=== PATIENT | female | born 1955 ===

== ENCOUNTER 2017-01-01 18:27 | Emergency (ER) | payer OTHER ==
[2017-01-01 19:20] VITALS: BP 143/75; PULSE 98; RESP 20; TEMP 98.1; O2SAT 99
[2017-01-01] MEDS ORDERED: Sodium Chloride 0.9% 1,000 ML IV ONE (20:21)
--- NOTE | 2017-01-01 20:45 | ED PDOC ---
HPI:Nausea, Vomiting, Diarrhea Time Seen by Provider: 01/01/17 19:35 Chief Complaint (Nursing): GI Problem History Per: Patient History/Exam Limitations: no limitations Onset/Duration Of Symptoms: Gradual Current Symptoms Are (Timing): Still Present Severity: Moderate Quality Of Discomfort: Dull Associated Symptoms: Nausea, Vomiting, Diarrhea, Urinary Symptoms. denies: Fever, Chills Exacerbating Factors: None Alleviating Factors: None Last Bowel Movement: Today Additional History Per: Patient Additional Complaint(s): patient has had n/v/d since 8 am. Patient has suprapubic pain, painful urination and b/l flank pain. no trauma no travel or sick contacts Past Medical History Reviewed: Historical Data, Nursing Documentation, Vital Signs Vital Signs: Last Vital Signs Temp 98.1 F 01/01/17 19:15 Pulse 98 H 01/01/17 19:15 Resp 20 01/01/17 19:15 BP 143/75 01/01/17 19:15 Pulse Ox 99 01/01/17 19:15 - Medical History PMH: No Chronic Diseases, HTN - Family History Family History: States: Unknown Family Hx - Living Arrangements Living Arrangements: With Family - Social History Current smoker - smoking cessation education provided: No - Home Medications Home Medications: Ambulatory Orders Medication Instructions Recorded traMADol [Ultram] 50 mg PO Q6 PRN #16 tab 11/03/16 Atropine/Diphenoxylate [Lonox 1 tab PO BID PRN #20 tab 01/01/17 0.025 MG-2.5 MG] Ondansetron [Zofran Odt] 4 mg PO TID PRN #14 odt 01/01/17 - Allergies Allergies/Adverse Reactions: Allergies Allergy/AdvReac Type Severity Reaction Status Date / Time No Known Allergies Allergy Verified 11/28/14 12:33 Review of Systems ROS Statement: Except As Marked, All Systems Reviewed And Found Negative Constitutional: Negative for: Fever, Chills Cardiovascular: Negative for: Chest Pain, Palpitations Respiratory: Negative for: Cough, Shortness of Breath Gastrointestinal: Positive for: Nausea, Vomiting, Abdominal Pain, Diarrhea Genitourinary Female: Positive for: Dysuria. Negative for: Frequency, Incontinence, Hematuria Neurological: Negative for: Weakness, Numbness Physical Exam - Reviewed Nursing Documentation Reviewed: Yes Vital Signs Reviewed: Yes - Physical Exam Appears: Positive for: No Acute Distress, Uncomfortable Head Exam: Positive for: ATRAUMATIC, NORMAL INSPECTION, NORMOCEPHALIC Eye Exam: Positive for: Normal appearance, EOMI, PERRL. Negative for: Periorbital swelling, Periorbital tenderness Neck: Positive for: Normal, Painless ROM, Supple. Negative for: Decreased ROM, Limited ROM, Trachea Midline Cardiovascular/Chest: Positive for: Regular Rate, Rhythm. Negative for: Chest Non Tender, Edema, Gallop, Murmur, Bradycardia, Tachycardia Respiratory: Positive for: Normal Breath Sounds. Negative for: Decreased Breath Sounds, Accessory Muscle Use, Crackles, Rales, Rhonchi, Stridor, Wheezing Pulses-Radial (L): 2+ Pulses-Radial (R): 2+ Gastrointestinal/Abdominal: Positive for: Normal Exam, Bowel Sounds, Soft. Negative for: Tenderness Back: Positive for: Normal Inspection. Negative for: L CVA Tenderness, R CVA Tenderness Extremity: Positive for: Normal ROM. Negative for: Tenderness, Pedal Edema Neurologic/Psych: Positive for: Alert, software database architect II-XII, Oriented. Negative for: Motor/Sensory Deficits - Laboratory Results Result Diagrams: 01/01/17 20:47 01/01/17 20:47 - ECG ECG: Positive for: Interpreted By Me ECG Rhythm: Positive for: Normal QRS, Normal ST Segment, Sinus Rhythm. Negative for: ST/T Changes Interpretation Of Abn EKG: rate of 91, no evidence of ischemia O2 Sat by Pulse Oximetry: 99 Pulse Ox Interpretation: Normal - Progress ED Course And Treament: can tolerate po. ct scan with possible ileus. sx all due to gastroenteritis no signs of infection. advise close f/u with pmd. lomotil and zofran. norco for pain. pt agree's with plan. Re-evaluation Time: 22:59 Condition: Improved Disposition - Clinical Impression Clinical Impression: Gastroenteritis - Patient ED Disposition Is Patient to be Admitted: No Counseled Patient/Family Regarding: Studies Performed, Diagnosis, Need For Followup, Rx Given - Disposition Referrals: [facility] [Outside] Disposition: Routine/Home Disposition Time: 23:00 Condition: GOOD Prescriptions: Atropine/Diphenoxylate [Lonox 0.025 MG-2.5 MG] 1 tab PO BID PRN #20 tab PRN Reason: Diarrhea Ondansetron [Zofran Odt] 4 mg PO TID PRN #14 odt PRN Reason: Nausea/Vomiting Instructions: Gastroenteritis (ED) Print Language: ITALIAN
[2017-01-01 21:38] LABS: ALB/GLOB RATIO 1.4 (1.0-2.1); ALKALINE PHOSPHATASE 84 U/L (38-126); ALT/SGPT 36 U/L (9-52); AMYLASE 94 U/L (30-110); AST/SGOT 36 U/L (14-36); BILIRUBIN,TOTAL 0.5 mg/dl (0.2-1.3); BLOOD UREA NITROGEN 19 mg/dl (7-17); CALCIUM 9.8 mg/dL (8.4-10.2); CARBON DIOXIDE 23 mmol/L (22-30); CHLORIDE 101 mmol/L (98-107); GFR AFRICAN-AMERICAN > 60; GLUCOSE,RANDOM 105 mg/dL (65-105); LIPASE 48 U/L (23-300); POTASSIUM 4.1 MMOL/L (3.6-5.0); SODIUM 142 mmol/l (132-148); TOTAL PROTEIN 7.9 G/DL (6.3-8.2)
[2017-01-01 21:39] LABS: BASO % 0.3 % (0.0-2.0); HEMATOCRIT 47.4 % (34.0-47.0); LYMPH # 0.5 K/uL (1.0-4.3); LYMPH % 5.8 % (20.0-40.0); MEAN CELL VOLUME 90.8 fl (81.0-99.0); MEAN CORPUSCULAR HEMOGLOBIN 29.9 pg (27.0-31.0); MEAN CORPUSCULAR HGB CONC 32.9 g/dL (33.0-37.0); MEAN PLATELET VOLUME 9.4 fl (7.2-11.7); MONO # 0.8 K/uL (0.0-0.8); NEUT # 7.4 K/uL (1.8-7.0); NEUT % 84.9 % (50.0-75.0); PLATELET COUNT 211 K/uL (130-400); RED CELL DISTRIBUTION WIDTH 14.5 % (11.5-14.5); WHITE BLOOD COUNT 8.7 K/uL (4.8-10.8)
[2017-01-01 21:46] LABS: URINE BILIRUBIN NEGATIVE (NEGATIVE); URINE BLOOD NEGATIVE (NEGATIVE); URINE COLOR YELLOW (YELLOW); URINE GLUCOSE (UA) NEG (Normal); URINE KETONE 80 mg/dL (NEGATIVE); URINE LEUKOCYTE ESTERASE NEG Leu/uL (Negative); URINE PROTEIN 30 mg/dL (NEGATIVE); URINE UROBILINOGEN 0.2-1.0 mg/dL (0.2-1.0)
[2017-01-01 22:07] LABS: NEUTROPHIL 85 % (42-75); TOTAL CELLS COUNTED 100
[2017-01-01 22:08] LABS: LARGE PLATELETS PRESENT
--- NOTE | 2017-01-01 22:31 | CT ---
EXAM: CT Abdomen and Pelvis Without Intravenous Contrast CLINICAL HISTORY: 61 years old, female; Pain; Abdominal pain; Generalized; Additional info: Bl flank pain. Sent lona Pina. Doc. With request TECHNIQUE: Axial computed tomography images of the abdomen and pelvis without intravenous contrast. This CT exam was performed using one or more of the following dose reduction techniques: automated exposure control, adjustment of the mA and/or kV according to patient size, and/or use of iterative reconstruction technique. Coronal and sagittal reformatted images were created and reviewed. EXAM DATE/TIME: 01/01/2017 8:46 PM COMPARISON: CT - ABD PELVIS W/O PO OR IV CONT 11/03/2016 6:42:21 PM FINDINGS: Artifacts: Motion artifact degrades image quality. Lower thorax: Heart size is normal. Lung bases are clear. There is a small hiatal hernia ABDOMEN: Liver: unremarkable Gallbladder and bile ducts: Gallbladder is collapsed around calcified stones Common bile duct is prominent. Pancreas: Pancreas is mildly atrophic. Spleen: unremarkable Adrenals: There is diffuse thickening of the left adrenal. There is mild thickening of the right adrenal. Kidneys and ureters: Kidneys and ureters are unremarkable. There are no renal or ureteral stones. Stomach and bowel: Stomach is partially distended. Rotation is normal. Small bowel is mildly distended with fluid. There are scattered air-fluid levels in the left upper quadrant. Terminal ileum is mildly distended with fluid. Appendix is unremarkable. There are scattered air-fluid levels in the colon. Appendix: See above. PELVIS: Bladder: unremarkable Reproductive: Uterus is atrophic. Adnexa are unremarkable. ABDOMEN and PELVIS: Intraperitoneal space: There is no free air or free fluid. Bones/joints: There are degenerative changes in the bony structures. There is mild loss of height at T12. Soft tissues: unremarkable Vasculature: There are vascular calcifications. Lymph nodes: There is no pathologic adenopathy. IMPRESSION: No renal or ureteral stones or hydronephrosis; gallstones with mildly prominent common duct; fluid filled small and large bowel with scattered air-fluid levels more suggestive of ileus than obstruction Additional findings as described above.
--- NOTE | 2017-01-02 18:26 | CARD ---
APPROVED REPORT EKG Measurement Heart [id number] <Conclusion> Normal sinus rhythm Normal ECG
== END 2017-01-01 23:23 | disposition home or self-care (01) ==
LOC: H.ER 18:27
DX: K52.9 Noninfective gastroenteritis and colitis, unspecified (principal)

== ENCOUNTER 2017-04-04 20:41 | Inpatient (IN) | payer OTHER ==
[2017-04-04 20:46] VITALS: BMI 30.8
[2017-04-04 21:20] LABS: BASO # 0.1 K/uL (0.0-0.2); BASO % 0.6 % (0.0-2.0); EOS # 0.1 K/uL (0.0-0.7); EOS % 0.7 % (0.0-4.0); HEMOGLOBIN 13.9 g/dL (12.0-16.0); LYMPH # 3.1 K/uL (1.0-4.3); LYMPH % 28.1 % (20.0-40.0); MEAN CORPUSCULAR HEMOGLOBIN 29.8 pg (27.0-31.0); MEAN CORPUSCULAR HGB CONC 33.1 g/dL (33.0-37.0); MONO # 0.9 K/uL (0.0-0.8); MONO % 8.4 % (0.0-10.0); NEUT # 6.7 K/uL (1.8-7.0); NEUT % 62.2 % (50.0-75.0); RBC 4.67 Mil/uL (3.80-5.20); RED CELL DISTRIBUTION WIDTH 13.7 % (11.5-14.5); WHITE BLOOD COUNT 10.8 K/uL (4.8-10.8)
[2017-04-04 21:37] LABS: ALB/GLOB RATIO 1.5 (1.0-2.1); ALBUMIN 4.3 g/dL (3.5-5.0); ALT/SGPT 41 U/L (9-52); AST/SGOT 25 U/L (14-36); BLOOD UREA NITROGEN 12 mg/dl (7-17); CALCIUM 9.8 mg/dL (8.4-10.2); GFR AFRICAN-AMERICAN > 60; GFR NON-AFRICAN AMERICAN > 60; LIPASE 49 U/L (23-300)
--- NOTE | 2017-04-04 22:12 | ED PDOC ---
HPI: Abdomen Time Seen by Provider: 04/04/17 20:59 Chief Complaint (Nursing): Abdominal Pain Chief Complaint (Provider): Epigastric abdominal pain History Per: Patient History/Exam Limitations: no limitations Onset/Duration Of Symptoms: Days Outside of [place] travel?: No Current Symptoms Are (Timing): Still Present Additional Complaint(s): The patient is 61yo female, PMHx of HTN, presents to ED for evaluation of epigastric pain. Pt reports she has been experiencing epigastric abdominal pain and took Omperazole with no relief. She denies any fever, vomiting or diarrhea. At present offers no additional medical complaints. Past Medical History Reviewed: Historical Data, Nursing Documentation, Vital Signs Vital Signs: Last Vital Signs Temp 98.3 F 04/09/17 08:07 Pulse 60 04/09/17 08:36 Resp 20 04/09/17 08:07 BP 116/62 04/09/17 08:36 Pulse Ox 91 L 04/09/17 08:07 - Medical History PMH: Gall Bladder Disease, HTN - Family History Family History: States: Unknown Family Hx - Home Medications Home Medications: Ambulatory Orders Medication Instructions Recorded Losartan [Cozaar] 25 mg PO DAILY 04/05/17 Simvastatin [Zocor] 20 mg PO DAILY 04/05/17 Amoxicillin/Clavulanate [Augmentin 1 tab PO BID #1 tab 04/09/17 875 MG-125 MG] oxyCODONE/Acetaminophen [Percocet 1 tab PO Q4 PRN tab 04/09/17 5/325 mg Tab] - Allergies Allergies/Adverse Reactions: Allergies Allergy/AdvReac Type Severity Reaction Status Date / Time No Known Allergies Allergy Verified 04/04/17 20:46 Review of Systems ROS Statement: Except As Marked, All Systems Reviewed And Found Negative Constitutional: Negative for: Fever Gastrointestinal: Positive for: Abdominal Pain (epigastric pain). Negative for : Vomiting, Diarrhea Physical Exam - Reviewed Nursing Documentation Reviewed: Yes Vital Signs Reviewed: Yes - Physical Exam Appears: Positive for: Well, Non-toxic, No Acute Distress Head Exam: Positive for: ATRAUMATIC, NORMAL INSPECTION, NORMOCEPHALIC Skin: Positive for: Normal Color, Warm Eye Exam: Positive for: Normal appearance Neck: Positive for: Normal, Supple Cardiovascular/Chest: Positive for: Regular Rate, Rhythm Respiratory: Positive for: Normal Breath Sounds. Negative for: Respiratory Distress Gastrointestinal/Abdominal: Positive for: Soft, Tenderness (mild epigastric tenderness) Extremity: Positive for: Normal ROM Neurologic/Psych: Positive for: Alert, Oriented - Laboratory Results Result Diagrams: 04/09/17 06:50 04/09/17 06:50 - ECG O2 Sat by Pulse Oximetry: 100 (RA) Pulse Ox Interpretation: Normal Medical Decision Making Medical Decision Making: Time: 2103 Impression: Abdominal pain r/o cholecystitis Plan: -- US Gallbladder -- Pepcid 20 mg Reassess 2299 US FINDINGS The liver is normal in size (11.8 cm length) and texture. The gallbladder has a thickened wall (4 mm), with no stones nor sludge seen. No pericholecystic fluid is appreciated. The sonographic Eng's sign is reported to be (-). The CBD is dilated (8 mm diameter). No ductal stones are seen. The pancreas is not well visualized. The right kidney measures 10.1 cm in length, with no hydronephrosis appreciated. No ascites is seen. IMPRESSION: Acalculous cholecystitis may be present. Clinical correlation is needed. No gallstones are identified. The gallbladder wall is thickened (4 mm thickness) . The CBD is dilated (8 mm diameter). No ductal stones are seen. 230 page surgical garment inspector twice, no answer dr schulz aware of case, agree w plan dr echavarria admitted pt Scribe Attestation: Documented by Barbie Lowery acting as a scribe for Sampson Mullins MD. Provider Attestation: All medical record entries made by the Scribe were at my direction and personally dictated by me. I have reviewed the chart and agree that the record accurately reflects my personal performance of the history, physical exam, medical decision making, and the department course for this patient. I have also personally directed, reviewed, and agree with the discharge instructions and disposition. Disposition - Clinical Impression Clinical Impression: Abdominal pain, Acalculous cholecystitis - Patient ED Disposition Is Patient to be Admitted: Yes Discussed With : Edu Echavarria (Hospitalist warehouse person) Counseled Patient/Family Regarding: Studies Performed, Diagnosis, Need For Followup - Disposition Disposition Time: 23:03 Condition: STABLE - Pt Status Changed To: Hospital Disposition Of: Inpatient (MED/SURG) - Admit Certification Admit to Inpatient:: After my assessment, the patient will require hospitalization for at least two midnights. This is because of the severity of symptoms shown, intensity of services needed, and/or the medical risk in this patient being treated as an outpatient.
[2017-04-04] MEDS ORDERED: Iohexol 240 (50 ml) PO ONE (23:00)
[2017-04-04] MEDS ORDERED: Piperacillin/Tazobact 4.5 GM in Sodium Chloride 0.9% 100 ML IVPB STA (23:03)
--- NOTE | 2017-04-04 23:14 | CP.PCM.HP ---
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 She could not eat because of the nausea, vomits. No SOB, Chest Pain, Palpitations, diarrhea, dysuria nor fever. 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 absent: Chills, Fever, Lethargy - EENT Eyes: Requires Corrective Lenses. absent: Diplopia, Floaters, Photophobia, Sees Flashes Ears: absent: Decreased Hearing, Ear Discharge, Ear Pain, Tinnitus Nose/Mouth/Throat: absent: Epistaxis, Nasal Congestion, Nasal Discharge, Sinus Pain, Sinus Pressure - Cardiovascular Cardiovascular: absent: Chest Pain, Dyspnea, Edema - Respiratory Respiratory: Cough. absent: Dyspnea, Wheezing, Stridor - Gastrointestinal Gastrointestinal: Abdominal Pain, Nausea, Vomiting. absent: Coffee Ground Emesis, Constipation, Diarrhea - Genitourinary Genitourinary: absent: Dysuria, Flank Pain, Hematuria, Urinary Frequency - Musculoskeletal Musculoskeletal: Back Pain. absent: Arthralgias, Joint Swelling, Muscle Cramps , Muscle Weakness - Integumentary Integumentary: absent: Pruritus, Rash, Skin Ulcer, Sores, Striae, Swelling - Neurological Neurological: Headaches. absent: Confusion, Numbness, Focal Weakness, Weakness - Psychiatric Psychiatric: Depression. absent: Anxiety, Panic Attacks - Endocrine Endocrine: absent: Palpitations, Polydipsia, Polyphagia, Polyuria - Hematologic/Lymphatic Hematologic: absent: Easy Bleeding, Easy Bruising Past Patient History - Past Social History Smoking Status: Former Smoker Chewing Tobacco Use: No Cigar Use: No Alcohol: < 2 Drinks/Day Home Situation {Lives}: Alone - CARDIAC Hx Hypertension: Yes - PULMONARY Hx Respiratory Disorders: No - NEUROLOGICAL Hx Neurological Disorder: No - HEENT Hx HEENT Problems: No - RENAL Hx Chronic Kidney Disease: Yes Hx Kidney Stones: Yes - ENDOCRINE/METABOLIC Hx Endocrine Disorders: No - HEMATOLOGICAL/ONCOLOGICAL Hx Blood Disorders: No - INTEGUMENTARY Hx Dermatological Problems: No - MUSCULOSKELETAL/RHEUMATOLOGICAL Hx Musculoskeletal Disorders: Yes Other/Comment: Multilevel degenerative spondylosis of thoracic and lumbar spine - GASTROINTESTINAL Hx Gall Bladder Disease: Yes Other/Comment: Cholelithiasis - GENITOURINARY/GYNECOLOGICAL Hx Genitourinary Disorders: No - PSYCHIATRIC Hx Depression: Yes Hx Substance Use: No - SURGICAL HISTORY Other/Comment: cyst removal / Cystoscopy - ANESTHESIA Hx Anesthesia: Yes Hx Anesthesia Reactions: No Meds Allergies/Adverse Reactions: Allergies Allergy/AdvReac Type Severity Reaction Status Date / Time No Known Allergies Allergy Verified 04/04/17 20:46 Physical Exam - Constitutional Appears: No Acute Distress - Head Exam Head Exam: ATRAUMATIC, NORMAL INSPECTION, NORMOCEPHALIC - Eye Exam Eye Exam: EOMI, Normal appearance Pupil Exam: NORMAL ACCOMODATION, PERRL - ENT Exam ENT Exam: Mucous Membranes Moist, Normal Exam, Normal External Ear Exam, Normal Oropharynx - Neck Exam Neck exam: Positive for: Full Rom, Normal Inspection. Negative for: Lymphadenopathy, Tenderness - Respiratory Exam Respiratory Exam: Clear to Auscultation Bilateral. absent: Rales, Rhonchi, Wheezes - Cardiovascular Exam Cardiovascular Exam: REGULAR RHYTHM, RRR, +S1, +S2. absent: Gallop, JVD - GI/Abdominal Exam Additional comments: Full, Soft, Decreased bowel sounds, gloria at the Epigastrium and RUQ. no guarding with +ve mild rebound tenderness - Rectal Exam Rectal Exam: Deferred - Extremities Exam Extremities exam: Positive for: full ROM, normal inspection. Negative for: calf tenderness, joint swelling, pedal edema - Back Exam Back exam: NORMAL INSPECTION. absent: CVA tenderness (L), CVA tenderness (R) - Neurological Exam Neurological exam: Alert, CN II-XII Intact, Oriented x3, Reflexes Normal - Psychiatric Exam Psychiatric exam: Normal Affect, Normal Mood - Skin Skin Exam: Dry, Intact, Normal Color, Warm Results - Vital Signs Recent Vital Signs: Last Vital Signs Temp 98.2 F 04/04/17 20:46 Pulse 66 04/04/17 20:46 Resp 16 04/04/17 20:46 BP 144/85 04/04/17 20:46 Pulse Ox 100 04/04/17 22:15 - Labs Result Diagrams: 04/04/17 21:12 04/04/17 21:12 Labs: Laboratory Results - last 24 hr 04/04/17 04/04/17 21:12 21:12 WBC 10.8 RBC 4.67 Hgb 13.9 Hct 42.1 MCV 90.0 MCH 29.8 MCHC 33.1 RDW 13.7 Plt Count 205 MPV 9.0 Neut % (Auto) 62.2 Lymph % (Auto) 28.1 [place] % (Auto) 8.4 Eos % (Auto) 0.7 Baso % (Auto) 0.6 Neut # 6.7 Lymph # 3.1 [place] # 0.9 H Eos # 0.1 Baso # 0.1 Sodium 140 Potassium 3.8 Chloride 104 Carbon Dioxide 27 Anion Gap 14 BUN 12 Creatinine 0.7 Est GFR ( Amer) > 60 Est GFR (Non-Af Amer) > 60 Random Glucose 101 Calcium 9.8 Total Bilirubin 0.6 AST 25 ALT 41 Alkaline Phosphatase 71 Total Protein 7.1 Albumin 4.3 Globulin 2.8 Albumin/Globulin Ratio 1.5 Lipase 49 - Imaging and Cardiology US - abdomen Status: Report reviewed by me Additional comment: FINDINGS: The liver is normal in size (11.8 cm length) and texture. The gallbladder has a thickened wall (4 mm), with no stones nor sludge seen. No pericholecystic fluid is appreciated. The sonographic Eng's sign is reported to be (-). The CBD is dilated (8 mm diameter). No ductal stones are seen. The pancreas is not well visualized. The right kidney measures 10.1 cm in length, with no hydronephrosis appreciated. No ascites is seen. IMPRESSION: Acalculous cholecystitis may be present. Clinical correlation is needed. No gallstones are identified. The gallbladder wall is thickened (4 mm thickness) . The CBD is dilated (8 mm diameter). No ductal stones are seen. CT scan - abdomen Status: Report reviewed by me Additional comment: 11/05/16 CT abdomen/Pelvis IMPRESSION: Presumed cholelithiasis however the possibility of concomitant porcelain gallbladder should be excluded with followup ultrasound. Findings consistent with fecal retention/constipation. Multilevel degenerative spondylosis of the thoracic and lumbar spine. Chest x-ray Status: Image reviewed by me Additional comment: No infiltrate Assessment & Plan - Assessment and Plan (Free Text) Assessment: #. Acalculous Cholecystitis #. Abdominal Pain #. 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 #. Acalculous Cholecystitis - consult Dr Pacheco surgery - NPO - IV fluids D5NS at 125mls/hr - Zosyn IVPB Q 6hrs - Pepcid IV daily - Follow CBC #. Abdominal Pain due to the Anila cystitis - Pain management with Morphine Sulphate #. HTN - Monitor BP #. Stress Ulcer prophylaxis with Pepcid #. DVT Prophylaxis with SCD #. Code Status: Full - Date & Time Date: 04/04/17 Time: 23:14
[2017-04-04] MEDS ORDERED: Sodium Chloride 0.9% 1,000 ML IV STA (23:22)
[2017-04-05] MEDS ORDERED: Morphine 4 MG/ML VIAL IVP STA (01:42)
[2017-04-05] MEDS: Dextrose 5%/0.9% NS 1,000 ML IV SCH ×3 (02:02→20:43)
[2017-04-05] MEDS: Piperacillin/Tazobact 3.375 GM in Sodium Chloride 0.9% 100 ML IVPB SCH ×2 (06:01→14:12)
[2017-04-05 06:57] LABS: BASO % 0.3 % (0.0-2.0); EOS % 0.1 % (0.0-4.0); HEMOGLOBIN 13.4 g/dL (12.0-16.0); LYMPH # 1.4 K/uL (1.0-4.3); LYMPH % 13.4 % (20.0-40.0); MEAN CELL VOLUME 90.2 fl (81.0-99.0); MEAN CORPUSCULAR HEMOGLOBIN 29.8 pg (27.0-31.0); MEAN PLATELET VOLUME 9.5 fl (7.2-11.7); MONO # 0.7 K/uL (0.0-0.8); MONO % 6.1 % (0.0-10.0); NEUT # 8.6 K/uL (1.8-7.0); NEUT % 80.1 % (50.0-75.0); RBC 4.51 Mil/uL (3.80-5.20); RED CELL DISTRIBUTION WIDTH 13.7 % (11.5-14.5); WHITE BLOOD COUNT 10.7 K/uL (4.8-10.8)
[2017-04-05 07:13] LABS: PARTIAL THROMBOPLASTIN TIME 27.4 Seconds (25.6-37.1); PROTHROMBIN TIME 11.6 Seconds (9.8-13.1)
--- NOTE | 2017-04-05 07:58 | CP.PCM.CON ---
<Inocente Crockett - Last Filed: 04/05/17 07:44> History of Present Illness - History of Present Illness History of Present Illness: Surgery Consult Note. Dr. Quesada 61yo F with PMHx of HTN here for evaluation of abdominal pain. Pain located in the epigastric and RUQ. Started yesterday morning at 5AM. Described as sharp, severe, continuous. Does not radiate. Patient denies any association with food or movement. She denies any nausea, or vomiting. No Fever, does report chills. No Chest pain, no shortness of breath. Denies any urinary symptoms. No Headache. She has had similar pain 3 times in the past year which spontaneously resolved. Took Omeprazole at home without any relief. Patient states that during her previous episodes, she was told that she has gallstones. She does report having previous imaging done here at [facility]. PMHx: HTN PSHx: Nephrolithiasis s/p cystoscopy and stone removal Social Hx: Denies current Tob (quit 8yrs ago). Current occasional ETOH use. Denies any illicit drugs. NKDA Review of Systems - Constitutional Constitutional: Chills. absent: Fever - EENT Eyes: absent: Change in Vision - Cardiovascular Cardiovascular: absent: Chest Pain, Diaphoresis, Dyspnea - Respiratory Respiratory: absent: Cough, Dyspnea - Gastrointestinal Gastrointestinal: Abdominal Pain, Nausea, Vomiting - Genitourinary Genitourinary: absent: Dysuria, Flank Pain, Urinary Frequency - Musculoskeletal Musculoskeletal: absent: Back Pain - Neurological Neurological: absent: Headaches, Weakness Past Patient History - Past Medical History & Family History Past Medical History?: Yes - Past Social History Smoking Status: Light Smoker < 10 Cigarettes Daily - CARDIAC Hx Cardiac Disorders: Yes Hx Hypercholesterolemia: Yes Hx Hypertension: Yes - PULMONARY Hx Respiratory Disorders: No - NEUROLOGICAL Hx Neurological Disorder: No - HEENT Hx HEENT Problems: Yes Other/Comment: Use eyeglasses - RENAL Hx Chronic Kidney Disease: Yes Hx Kidney Stones: Yes - ENDOCRINE/METABOLIC Hx Endocrine Disorders: No - HEMATOLOGICAL/ONCOLOGICAL Hx Blood Disorders: No - INTEGUMENTARY Hx Dermatological Problems: No - MUSCULOSKELETAL/RHEUMATOLOGICAL Hx Musculoskeletal Disorders: Yes Hx Falls: Yes - GASTROINTESTINAL Hx Gastrointestinal Disorders: Yes Hx Gall Bladder Disease: Yes Other/Comment: Cholelithiasis - GENITOURINARY/GYNECOLOGICAL Hx Genitourinary Disorders: No - PSYCHIATRIC Hx Substance Use: No - SURGICAL HISTORY Other/Comment: cyst removal / Cystoscopy - ANESTHESIA Hx Anesthesia: Yes Hx Anesthesia Reactions: No Hx Malignant Hyperthermia: No Has any member of the family had a problem w/ anesthesia?: No Meds Allergies/Adverse Reactions: Allergies Allergy/AdvReac Type Severity Reaction Status Date / Time No Known Allergies Allergy Verified 04/04/17 20:46 - Medications Medications: Current Medications Famotidine (Pepcid) 20 mg IVP DAILY [facility] Piperacillin Sod/Tazobactam (Sod 3.375 gm/ Sodium Chloride) 100 mls @ 100 mls/ hr IVPB 0000,0600,1200,1800 [facility] Last Admin: 04/05/17 06:01 Dose: 100 mls/hr Dextrose/Sodium Chloride (Dextrose 5%/0.9% Ns 1000 Ml) 1,000 mls @ 125 mls/hr IV .Q8H [facility] Stop: 04/05/17 23:57 Last Admin: 04/05/17 02:02 Dose: 125 mls/hr Morphine Sulfate (Morphine) 4 mg IVP Q4 PRN PRN Reason: Pain, severe (8-10) Morphine Sulfate (Morphine) 2 mg IVP Q4 PRN PRN Reason: Pain, moderate (4-7) Ondansetron HCl (Zofran Inj) 4 mg IVP Q4 PRN PRN Reason: Nausea/Vomiting Physical Exam - Constitutional Appears: Well, No Acute Distress - Head Exam Head Exam: ATRAUMATIC, NORMAL INSPECTION, NORMOCEPHALIC - Eye Exam Eye Exam: EOMI, Normal appearance - Respiratory Exam Respiratory Exam: NORMAL BREATHING PATTERN. absent: Accessory Muscle Use, Chest Wall Tenderness - GI/Abdominal Exam GI & Abdominal Exam: Soft, Tenderness. absent: Distended, Firm, Guarding, Rigid Additional comments: Tenderness to palpation in the epigastric area and RUQ. Negative Eng's sign. No visible abdominal scars. Soft, non-distended. No rebound tenderness. - Extremities Exam Extremities exam: Positive for: normal inspection. Negative for: calf tenderness - Back Exam Back exam: NORMAL INSPECTION - Neurological Exam Neurological exam: Alert, Oriented x3 - Psychiatric Exam Psychiatric exam: Normal Affect, Normal Mood - Skin Skin Exam: Dry, Intact, Normal Color, Warm Results - Vital Signs Recent Vital Signs: Last Vital Signs Temp 98.3 F 04/05/17 01:35 Pulse 51 L 04/05/17 01:35 Resp 18 04/05/17 01:35 BP 156/71 H 04/05/17 01:35 Pulse Ox 99 04/05/17 01:35 - Labs Result Diagrams: 04/05/17 05:35 04/04/17 21:12 Labs: Laboratory Results - last 24 hr 04/05/17 04/05/17 05:35 05:35 WBC 10.7 RBC 4.51 Hgb 13.4 Hct 40.7 MCV 90.2 MCH 29.8 MCHC 33.0 RDW 13.7 Plt Count 198 MPV 9.5 Neut % (Auto) 80.1 H Lymph % (Auto) 13.4 L [place] % (Auto) 6.1 Eos % (Auto) 0.1 Baso % (Auto) 0.3 Neut # 8.6 H Lymph # 1.4 [place] # 0.7 Eos # 0.0 Baso # 0.0 PT 11.6 INR 1.0 APTT 27.4 Assessment & Plan - Assessment and Plan (Free Text) Assessment: 61yo F with PMHx of HTN and hx of gallstones here with abdominal pain - Abd US - mildly thickened GB wall, CBD 8.4mm. - Afebrile, no leukocytosis - f/u MRCP - f/u HIDA - Keep patient NPO for now - Pain management - continue IVF, Abx - will continue to follow patient clinically Discussed case with Dr. Dipak Crockett PGY1 surgery pager: [phone] <Drake Quesada - Last Filed: 04/05/17 18:36> History of Present Illness - History of Present Illness History of Present Illness: Patient was seen and examined at the bedside. Agree with resident's note above Meds - Medications Medications: Current Medications Famotidine (Pepcid) 20 mg IVP DAILY [facility] Last Admin: 04/05/17 10:00 Dose: 20 mg Piperacillin Sod/Tazobactam (Sod 3.375 gm/ Sodium Chloride) 100 mls @ 100 mls/ hr IVPB 0000,0600,1200,1800 [facility] Last Admin: 04/05/17 14:12 Dose: 100 mls/hr Dextrose/Sodium Chloride (Dextrose 5%/0.9% Ns 1000 Ml) 1,000 mls @ 125 mls/hr IV .Q8H [facility] Stop: 04/05/17 23:57 Last Admin: 04/05/17 13:16 Dose: 125 mls/hr Morphine Sulfate (Morphine) 4 mg IVP Q4 PRN PRN Reason: Pain, severe (8-10) Morphine Sulfate (Morphine) 2 mg IVP Q4 PRN PRN Reason: Pain, moderate (4-7) Ondansetron HCl (Zofran Inj) 4 mg IVP Q4 PRN PRN Reason: Nausea/Vomiting Results - Vital Signs Recent Vital Signs: Last Vital Signs Temp 98.5 F 04/05/17 16:35 Pulse 48 L 04/05/17 16:35 Resp 18 04/05/17 16:35 BP 125/70 04/05/17 16:35 Pulse Ox 98 04/05/17 16:35 - Labs Result Diagrams: 04/05/17 05:35 04/04/17 21:12 Labs: Laboratory Results - last 24 hr 04/05/17 04/05/17 05:35 05:35 WBC 10.7 RBC 4.51 Hgb 13.4 Hct 40.7 MCV 90.2 MCH 29.8 MCHC 33.0 RDW 13.7 Plt Count 198 MPV 9.5 Neut % (Auto) 80.1 H Lymph % (Auto) 13.4 L [place] % (Auto) 6.1 Eos % (Auto) 0.1 Baso % (Auto) 0.3 Neut # 8.6 H Lymph # 1.4 [place] # 0.7 Eos # 0.0 Baso # 0.0 PT 11.6 INR 1.0 APTT 27.4
--- NOTE | 2017-04-05 09:06 | US ---
HISTORY: epigastric pain rule out cholecystitis COMPARISON: None. TECHNIQUE: Sonographic evaluation of the right upper quadrant of the abdomen. FINDINGS: LIVER: Measures 11.8 cm in length. Normal echogenicity of the liver parenchyma. No mass. No intrahepatic bile duct dilatation. GALLBLADDER: The gallbladder is partially distended. No gallstones or pericholecystic fluid. The sonographic Eng's sign is negative. COMMON BILE DUCT: Measures 8.0 mm. No stones. Mild diffuse dilatation. PANCREAS: Unremarkable as visualized. No mass. No ductal dilatation. RIGHT KIDNEY: Measures 10.1 cm in length. Normal echogenicity. No calculus, mass, or hydronephrosis. AORTA: No aneurysmal dilatation. IVC: Unremarkable. OTHER FINDINGS: None . IMPRESSION: Mild diffuse dilatation of the common bile duct without evidence of choledocholithiasis. If clinically indicated, an MRCP may be performed to exclude distal obstruction. No evidence of cholelithiasis.
--- NOTE | 2017-04-05 09:18 | RAD ---
PROCEDURE: CHEST RADIOGRAPH, 1 VIEW HISTORY: RUQ pain/Pre OP COMPARISON: None available. FINDINGS: LUNGS: The lungs are well inflated and clear. PLEURA: No pneumothorax or pleural fluid seen. CARDIOVASCULAR: Normal. OSSEOUS STRUCTURES: No significant abnormalities. VISUALIZED UPPER ABDOMEN: Normal. OTHER FINDINGS: None. IMPRESSION: No active pulmonary disease.
--- NOTE | 2017-04-05 11:04 | CP.PCM.PN ---
<Natasha Romero - Last Filed: 04/05/17 15:23> Subjective - Date & Time of Evaluation Date of Evaluation: 04/05/17 Time of Evaluation: 11:02 - Subjective Subjective: Patient is seen and examined by bedside. pt notes that she feels alot better, no longer has any RUQ pain. Nausea and vomiting has resolved. Denies chest pain , dyspnea, fever, chills, abdominal pain. Objective - Vital Signs/Intake and Output Vital Signs (last 24 hours): Temp Pulse Resp BP Pulse Ox 97.9 F 50 L 18 128/70 98 04/05/17 08:43 04/05/17 08:43 04/05/17 08:43 04/05/17 08:43 04/05/17 08:43 - Medications Medications: Current Medications Famotidine (Pepcid) 20 mg IVP DAILY [facility] Piperacillin Sod/Tazobactam (Sod 3.375 gm/ Sodium Chloride) 100 mls @ 100 mls/ hr IVPB 0000,0600,1200,1800 [facility] Last Admin: 04/05/17 06:01 Dose: 100 mls/hr Dextrose/Sodium Chloride (Dextrose 5%/0.9% Ns 1000 Ml) 1,000 mls @ 125 mls/hr IV .Q8H [facility] Stop: 04/05/17 23:57 Last Admin: 04/05/17 02:02 Dose: 125 mls/hr Morphine Sulfate (Morphine) 4 mg IVP Q4 PRN PRN Reason: Pain, severe (8-10) Morphine Sulfate (Morphine) 2 mg IVP Q4 PRN PRN Reason: Pain, moderate (4-7) Ondansetron HCl (Zofran Inj) 4 mg IVP Q4 PRN PRN Reason: Nausea/Vomiting - Labs Labs: 04/05/17 05:35 PT 11.6 Seconds (9.8-13.1) 04/05/17 05:35 INR 1.0 (0.9-1.2) 04/05/17 05:35 APTT 27.4 Seconds (25.6-37.1) 04/05/17 05:35 - Constitutional Appears: Well, No Acute Distress - Head Exam Head Exam: ATRAUMATIC, NORMOCEPHALIC - Eye Exam Eye Exam: EOMI, Normal appearance - Neck Exam Neck Exam: Full ROM - Respiratory Exam Respiratory Exam: Clear to Ausculation Bilateral, NORMAL BREATHING PATTERN. absent: Rales, Wheezes - Cardiovascular Exam Cardiovascular Exam: REGULAR RHYTHM, +S1, +S2 - GI/Abdominal Exam GI & Abdominal Exam: Soft, Normal Bowel Sounds. absent: Distended, Guarding, Tenderness Additional comments: Eng's sign is negative. No tenderness to palpation and negative for rebound tenderness. - Extremities Exam Extremities Exam: Full ROM, Normal Capillary Refill. 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 Per patient this is the third incident this year, all of which are sharp RUQ pain that resolves by itself. Per US Acalculous cholecystitis may be present, mildly thickened gallbladder wall with CBD 8.4mm. Per HIDA cystic duct is occluded, presumptive evidence for acute cholecystitis. Patient remains afebrile, VS stable. 1. Acute cholecystitis -surgery following -NPO, IV fluids (D5NS) -Zosyn IVPB Q 6hrs -follow up with MRCP -Pain management with Morphine Sulphate -HIDA scan appreciated, cystic duct occluded presumptive evidence for acute cholecystitis 2. HTN - Monitor BP 3. DVT Prophylaxis with SCD <Yolanda Burns - Last Filed: 04/05/17 15:51> Objective - Vital Signs/Intake and Output Vital Signs (last 24 hours): Temp Pulse Resp BP Pulse Ox 97.9 F 50 L 18 128/70 98 04/05/17 08:43 04/05/17 08:43 04/05/17 08:43 04/05/17 08:43 04/05/17 08:43 - Medications Medications: Current Medications Famotidine (Pepcid) 20 mg IVP DAILY [facility] Last Admin: 04/05/17 10:00 Dose: 20 mg Piperacillin Sod/Tazobactam (Sod 3.375 gm/ Sodium Chloride) 100 mls @ 100 mls/ hr IVPB 0000,0600,1200,1800 [facility] Last Admin: 04/05/17 14:12 Dose: 100 mls/hr Dextrose/Sodium Chloride (Dextrose 5%/0.9% Ns 1000 Ml) 1,000 mls @ 125 mls/hr IV .Q8H [facility] Stop: 04/05/17 23:57 Last Admin: 04/05/17 13:16 Dose: 125 mls/hr Morphine Sulfate (Morphine) 4 mg IVP Q4 PRN PRN Reason: Pain, severe (8-10) Morphine Sulfate (Morphine) 2 mg IVP Q4 PRN PRN Reason: Pain, moderate (4-7) Ondansetron HCl (Zofran Inj) 4 mg IVP Q4 PRN PRN Reason: Nausea/Vomiting - Labs Labs: 04/05/17 05:35 PT 11.6 Seconds (9.8-13.1) 04/05/17 05:35 INR 1.0 (0.9-1.2) 04/05/17 05:35 APTT 27.4 Seconds (25.6-37.1) 04/05/17 05:35 Attending/Attestation - Attestation I have personally seen and examined this patient.: Yes I have fully participated in the care of the patient.: Yes I have reviewed all pertinent clinical information, including history, physical exam and plan: Yes
--- NOTE | 2017-04-05 14:41 | NM ---
PROCEDURE: Nuclear Medicine Hepatobiliary Scan HISTORY: Acalculous Cholecystitis COMPARISON: April 04, 2017. Abdominal ultrasound TECHNIQUE: 5.2 mCi of technetium 99m Mebrofenin was administered intravenously. Planar images of the abdomen were obtained at 5 min intervals to 60 mins. Delayed images were also obtained. FINDINGS: LIVER: Timely and homogenous uptake. COMMON BILE DUCT: identified at 5 mins. GALLBLADDER: Not identified 3 hours SMALL BOWEL: Identified at 20 mins. IMPRESSION: Abnormal Hepatobiliary Scan. The cystic duct is occluded presumptive evidence for acute cholecystitis.
--- NOTE | 2017-04-05 18:25 | CARD ---
APPROVED REPORT EKG Measurement Heart [id number] MA [id number] [id number] <Conclusion> Sinus bradycardia Otherwise normal ECG
[2017-04-06] MEDS: Piperacillin/Tazobact 3.375 GM in Sodium Chloride 0.9% 100 ML IVPB SCH ×5 (00:28→23:58)
[2017-04-06] MEDS: Dextrose 5%/0.9% NS 1,000 ML IV SCH ×4 (06:15→23:57)
[2017-04-06 08:16] LABS: HEMOGLOBIN 12.4 g/dL (12.0-16.0); MEAN CELL VOLUME 89.7 fl (81.0-99.0); MEAN CORPUSCULAR HEMOGLOBIN 30.1 pg (27.0-31.0); MEAN CORPUSCULAR HGB CONC 33.5 g/dL (33.0-37.0); RBC 4.14 Mil/uL (3.80-5.20); RED CELL DISTRIBUTION WIDTH 13.6 % (11.5-14.5); WHITE BLOOD COUNT 6.5 K/uL (4.8-10.8)
[2017-04-06 08:34] LABS: ALB/GLOB RATIO 1.4 (1.0-2.1); ALBUMIN 3.2 g/dL (3.5-5.0); ALT/SGPT 58 U/L (9-52); AST/SGOT 29 U/L (14-36); BLOOD UREA NITROGEN 9 mg/dl (7-17); CALCIUM 8.7 mg/dL (8.4-10.2); GFR AFRICAN-AMERICAN > 60; GFR NON-AFRICAN AMERICAN > 60
--- NOTE | 2017-04-06 09:11 | CP.PCM.PN ---
<Inocente Crockett - Last Filed: 04/06/17 09:09> Subjective - Date & Time of Evaluation Date of Evaluation: 04/06/17 Time of Evaluation: 09:09 - Subjective Subjective: Surgery Progress note. Dr. Quesada. Pt seen and examined at bedside. No acute events overnight. Patient states that her abdominal pain is now located more in the RLQ. Denies any N/V. Denies any Fever. Does c/o chills and headache. Objective - Vital Signs/Intake and Output Vital Signs (last 24 hours): Temp Pulse Resp BP Pulse Ox 97.8 F 52 L 18 147/74 98 04/06/17 07:24 04/06/17 07:24 04/06/17 07:24 04/06/17 07:24 04/06/17 07:24 - Medications Medications: Current Medications Famotidine (Pepcid) 20 mg IVP DAILY [facility] Last Admin: 04/05/17 10:00 Dose: 20 mg Piperacillin Sod/Tazobactam (Sod 3.375 gm/ Sodium Chloride) 100 mls @ 100 mls/ hr IVPB 0000,0600,1200,1800 [facility] Last Admin: 04/06/17 06:17 Dose: 100 mls/hr Morphine Sulfate (Morphine) 4 mg IVP Q4 PRN PRN Reason: Pain, severe (8-10) Morphine Sulfate (Morphine) 2 mg IVP Q4 PRN PRN Reason: Pain, moderate (4-7) Ondansetron HCl (Zofran Inj) 4 mg IVP Q4 PRN PRN Reason: Nausea/Vomiting - Labs Labs: 04/06/17 06:00 04/06/17 06:00 PT 11.6 Seconds (9.8-13.1) 04/05/17 05:35 INR 1.0 (0.9-1.2) 04/05/17 05:35 APTT 27.4 Seconds (25.6-37.1) 04/05/17 05:35 - Constitutional Appears: Well, No Acute Distress - Head Exam Head Exam: ATRAUMATIC, NORMAL INSPECTION, NORMOCEPHALIC - Eye Exam Eye Exam: EOMI, Normal appearance - ENT Exam ENT Exam: Mucous Membranes Moist - Neck Exam Neck Exam: Full ROM - Respiratory Exam Respiratory Exam: NORMAL BREATHING PATTERN - GI/Abdominal Exam GI & Abdominal Exam: Soft, Tenderness (RLQ tenderness to palpation). absent: Distended, Firm, Guarding, Rigid - Extremities Exam Extremities Exam: Normal Inspection. absent: Calf Tenderness - Neurological Exam Neurological Exam: Alert, Awake, Oriented x3 - Psychiatric Exam Psychiatric exam: Normal Affect, Normal Mood - Skin Skin Exam: Dry, Intact, Normal Color, Warm Assessment and Plan - Assessment and Plan (Free Text) Assessment: 61yo F with PMHx of HTN and hx of gallstones here with abdominal pain - Abd US - mildly thickened GB wall, CBD 8.4mm. - Afebrile, no leukocytosis - HIDA - occluded cystic duct - MRCP (prelim) - 1.7cm gallstone in gallbladder. Mild pericholecystic fluid. No evidence of ductal stone. - f/u official MRCP report - Keep patient NPO for now - Pain management - continue IVF, Abx - will continue to follow patient clinically Inocente Crockett PGY1 <Drake Quesada - Last Filed: 04/06/17 14:29> Subjective - Date & Time of Evaluation Time of Evaluation: 13:40 - Subjective Subjective: Patient was seen and examined at the bedside. Agree with resident's note above. HIDA results noted Objective - Vital Signs/Intake and Output Vital Signs (last 24 hours): Temp Pulse Resp BP Pulse Ox 97.8 F 52 L 18 147/74 98 04/06/17 07:24 04/06/17 07:24 04/06/17 07:24 04/06/17 13:25 04/06/17 07:24 - Medications Medications: Current Medications Atorvastatin Calcium (Lipitor) 10 mg PO DAILY [facility] Famotidine (Pepcid) 20 mg IVP DAILY [facility] Last Admin: 04/06/17 09:36 Dose: 20 mg Piperacillin Sod/Tazobactam (Sod 3.375 gm/ Sodium Chloride) 100 mls @ 100 mls/ hr IVPB 0000,0600,1200,1800 [facility] Last Admin: 04/06/17 11:36 Dose: 100 mls/hr Dextrose/Sodium Chloride (Dextrose 5%/0.9% Ns 1000 Ml) 1,000 mls @ 125 mls/hr IV .Q8H [facility] Stop: 04/07/17 10:51 Last Admin: 04/06/17 11:38 Dose: 125 mls/hr Losartan Potassium (Cozaar) 25 mg PO DAILY [facility] Last Admin: 04/06/17 13:25 Dose: 25 mg Morphine Sulfate (Morphine) 4 mg IVP Q4 PRN PRN Reason: Pain, severe (8-10) Morphine Sulfate (Morphine) 2 mg IVP Q4 PRN PRN Reason: Pain, moderate (4-7) Ondansetron HCl (Zofran Inj) 4 mg IVP Q4 PRN PRN Reason: Nausea/Vomiting - Labs Labs: 04/06/17 06:00 04/06/17 06:00 PT 11.6 Seconds (9.8-13.1) 04/05/17 05:35 INR 1.0 (0.9-1.2) 04/05/17 05:35 APTT 27.4 Seconds (25.6-37.1) 04/05/17 05:35 Assessment and Plan - Assessment and Plan (Free Text) Plan: - Start clear liquid diet - Pain control - IV fluids - Continue antibiotics - Awaiting final read on the MRCP - Will likely do cholecystectomy on Saturday04/08/17 - Repeat labs in am - Will follow
--- NOTE | 2017-04-06 11:23 | CP.PCM.PN ---
Subjective - Date & Time of Evaluation Date of Evaluation: 04/06/17 Time of Evaluation: 08:30 - Subjective Subjective: Patient seen and examined bedside. Feeling well. Still with RUQ and RLQ pain. Denies any CP, SOB, palpitations, nausea, vomiting. Hemodynamically stable, afebrile. No acute issues overnight For OR on Saturday Objective - Vital Signs/Intake and Output Vital Signs (last 24 hours): Temp Pulse Resp BP Pulse Ox 97.8 F 52 L 18 147/74 98 04/06/17 07:24 04/06/17 07:24 04/06/17 07:24 04/06/17 07:24 04/06/17 07:24 - Medications Medications: Current Medications Famotidine (Pepcid) 20 mg IVP DAILY [facility] Last Admin: 04/06/17 09:36 Dose: 20 mg Piperacillin Sod/Tazobactam (Sod 3.375 gm/ Sodium Chloride) 100 mls @ 100 mls/ hr IVPB 0000,0600,1200,1800 [facility] Last Admin: 04/06/17 06:17 Dose: 100 mls/hr Potassium Chloride (Potassium Cl 10meq/50ml Sterile Water) 50 mls @ 50 mls/hr IVPB Q1 [facility] Stop: 04/06/17 13:59 Dextrose/Sodium Chloride (Dextrose 5%/0.9% Ns 1000 Ml) 1,000 mls @ 125 mls/hr IV .Q8H [facility] Stop: 04/07/17 10:51 Morphine Sulfate (Morphine) 4 mg IVP Q4 PRN PRN Reason: Pain, severe (8-10) Morphine Sulfate (Morphine) 2 mg IVP Q4 PRN PRN Reason: Pain, moderate (4-7) Ondansetron HCl (Zofran Inj) 4 mg IVP Q4 PRN PRN Reason: Nausea/Vomiting - Labs Labs: 04/06/17 06:00 04/06/17 06:00 PT 11.6 Seconds (9.8-13.1) 04/05/17 05:35 INR 1.0 (0.9-1.2) 04/05/17 05:35 APTT 27.4 Seconds (25.6-37.1) 04/05/17 05:35 - Constitutional Appears: Non-toxic, No Acute Distress - Head Exam Head Exam: ATRAUMATIC, NORMAL INSPECTION, NORMOCEPHALIC - Eye Exam Eye Exam: EOMI, Normal appearance, PERRL Pupil Exam: NORMAL ACCOMODATION - ENT Exam ENT Exam: Mucous Membranes Moist, Normal Exam - Neck Exam Neck Exam: Full ROM, Normal Inspection - Respiratory Exam Respiratory Exam: Clear to Ausculation Bilateral, NORMAL BREATHING PATTERN. absent: Rales, Rhonchi, Wheezes - Cardiovascular Exam Cardiovascular Exam: REGULAR RHYTHM, RRR, +S1, +S2. absent: JVD - GI/Abdominal Exam GI & Abdominal Exam: Soft, Tenderness (RUQ), Normal Bowel Sounds. absent: Distended, Guarding, Rebound - Rectal Exam Rectal Exam: Deferred - Extremities Exam Extremities Exam: Full ROM, Normal Capillary Refill, Normal Inspection. 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 This is the third incident this year, all of which are sharp RUQ pain that resolves by itself. Per US Acalculous cholecystitis may be present, mildly thickened gallbladder wall with CBD 8.4mm. Per HIDA cystic duct is occluded, presumptive evidence for acute cholecystitis.MRCP showed cholelithiasis , cholecystitis and no CBD stone. 1. Acute cholecystitis and cholelithiasis Continue Zosyn Iv and pain management MRCP showed no CBD stone Surgery on board For oR on Saturday Start liquid diet 2. HTN controlled resume Losartan 3. Hypokalemia replaced with Kcl 4. Dyslipidemia on statin 5. DVT Prophylaxis SCD
[2017-04-06] MEDS ORDERED: Morphine 4 MG/ML VIAL IVP PRN ×2 (12:15)
[2017-04-06] MEDS: Potassium CL 10 MEQ/50 ML 50 ML IVPB SCH ×2 (13:27→15:48)
[2017-04-06] MEDS ORDERED: Potassium Chloride 20 mEq/15 ml LIQ UD PO ONE (14:30)
[2017-04-07] MEDS: Dextrose 5%/0.9% NS 1,000 ML IV SCH ×2 (03:00→23:36)
[2017-04-07] MEDS: Piperacillin/Tazobact 3.375 GM in Sodium Chloride 0.9% 100 ML IVPB SCH ×4 (05:31→23:34)
[2017-04-07 07:44] LABS: BASO % 0.6 % (0.0-2.0); EOS # 0.1 K/uL (0.0-0.7); EOS % 1.7 % (0.0-4.0); HEMOGLOBIN 13.1 g/dL (12.0-16.0); LYMPH # 2.6 K/uL (1.0-4.3); LYMPH % 37.8 % (20.0-40.0); MEAN CORPUSCULAR HEMOGLOBIN 29.6 pg (27.0-31.0); MEAN CORPUSCULAR HGB CONC 32.9 g/dL (33.0-37.0); MONO # 0.7 K/uL (0.0-0.8); MONO % 9.7 % (0.0-10.0); NEUT # 3.5 K/uL (1.8-7.0); NEUT % 50.2 % (50.0-75.0); NRBC % 0.1 % (0.0-0.0); RBC 4.42 Mil/uL (3.80-5.20); RED CELL DISTRIBUTION WIDTH 13.5 % (11.5-14.5); WHITE BLOOD COUNT 6.9 K/uL (4.8-10.8)
[2017-04-07 08:00] LABS: URINE BILIRUBIN NEGATIVE (NEGATIVE); URINE BLOOD NEGATIVE (NEGATIVE); URINE CLARITY CLEAR (Clear); URINE COLOR STRAW (YELLOW); URINE GLUCOSE (UA) NEG (Normal); URINE LEUKOCYTE ESTERASE NEG Leu/uL (Negative); URINE NITRATE NEGATIVE (NEGATIVE); URINE PROTEIN NEGATIVE (NEGATIVE); URINE UROBILINOGEN 0.2-1.0 mg/dL (0.2-1.0)
[2017-04-07 08:04] LABS: ALB/GLOB RATIO 1.5 (1.0-2.1); ALBUMIN 3.7 g/dL (3.5-5.0); ALT/SGPT 55 U/L (9-52); AST/SGOT 29 U/L (14-36); BLOOD UREA NITROGEN 7 mg/dl (7-17); CALCIUM 9.4 mg/dL (8.4-10.2); GFR AFRICAN-AMERICAN > 60; GFR NON-AFRICAN AMERICAN > 60
--- NOTE | 2017-04-07 09:51 | CP.PCM.PN ---
Subjective - Date & Time of Evaluation Date of Evaluation: 04/07/17 Time of Evaluation: 09:15 - Subjective Subjective: Patient seen and examined .Lying comfortable in bed.Hemodynamically stable, afebrile.Tolerating liquid diet. no acute issues overnight Objective - Vital Signs/Intake and Output Vital Signs (last 24 hours): Temp Pulse Resp BP Pulse Ox 97.7 F 53 L 20 147/70 95 04/07/17 07:41 04/07/17 07:41 04/07/17 07:41 04/07/17 07:41 04/07/17 07:41 - Medications Medications: Current Medications Atorvastatin Calcium (Lipitor) 10 mg PO DAILY [facility] Famotidine (Pepcid) 20 mg IVP DAILY [facility] Last Admin: 04/06/17 09:36 Dose: 20 mg Piperacillin Sod/Tazobactam (Sod 3.375 gm/ Sodium Chloride) 100 mls @ 100 mls/ hr IVPB 0000,0600,1200,1800 [facility] Last Admin: 04/07/17 05:31 Dose: 100 mls/hr Dextrose/Sodium Chloride (Dextrose 5%/0.9% Ns 1000 Ml) 1,000 mls @ 125 mls/hr IV .Q8H [facility] Stop: 04/07/17 10:51 Last Admin: 04/07/17 03:00 Dose: Not Given Losartan Potassium (Cozaar) 25 mg PO DAILY [facility] Last Admin: 04/06/17 13:25 Dose: 25 mg Morphine Sulfate (Morphine) 4 mg IVP Q4 PRN PRN Reason: Pain, severe (8-10) Morphine Sulfate (Morphine) 2 mg IVP Q4 PRN PRN Reason: Pain, moderate (4-7) Ondansetron HCl (Zofran Inj) 4 mg IVP Q4 PRN PRN Reason: Nausea/Vomiting - Labs Labs: 04/07/17 06:00 04/07/17 06:00 PT 11.6 Seconds (9.8-13.1) 04/05/17 05:35 INR 1.0 (0.9-1.2) 04/05/17 05:35 APTT 27.4 Seconds (25.6-37.1) 04/05/17 05:35 - Constitutional Appears: Non-toxic, No Acute Distress - Head Exam Head Exam: ATRAUMATIC, NORMAL INSPECTION, NORMOCEPHALIC - Eye Exam Eye Exam: EOMI, Normal appearance, PERRL Pupil Exam: NORMAL ACCOMODATION - ENT Exam ENT Exam: Mucous Membranes Moist, Normal Exam - Neck Exam Neck Exam: Full ROM, Normal Inspection - Respiratory Exam Respiratory Exam: Clear to Ausculation Bilateral. absent: Rales, Rhonchi, Wheezes - Cardiovascular Exam Cardiovascular Exam: REGULAR RHYTHM, RRR, +S1, +S2. absent: JVD - GI/Abdominal Exam GI & Abdominal Exam: Soft, Normal Bowel Sounds. absent: Distended, Guarding, Tenderness, Rebound - Rectal Exam Rectal Exam: Deferred - Extremities Exam Extremities Exam: Full ROM, Normal Capillary Refill, Normal Inspection. 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 This is the third incident this year, all of which are sharp RUQ pain that resolves by itself. Per US Acalculous cholecystitis may be present, mildly thickened gallbladder wall with CBD 8.4mm. Per HIDA cystic duct is occluded, presumptive evidence for acute cholecystitis.MRCP showed cholelithiasis , cholecystitis and no CBD stone. 1. Acute cholecystitis and cholelithiasis Continue Zosyn Iv and pain management MRCP showed no CBD stone Surgery on board For OR on Saturday Tolerating liquid diet 2.HTN controlled resume Losartan 3. Hypokalemia replaced with Kcl 4. Dyslipidemia on statin 5. DVT Prophylaxis SCD
--- NOTE | 2017-04-07 10:00 | CP.PCM.PN ---
<KeiraInocente - Last Filed: 04/07/17 09:58> Subjective - Date & Time of Evaluation Date of Evaluation: 04/07/17 Time of Evaluation: 09:58 - Subjective Subjective: Surgery Progress note. Dr. Quesada Pt seen and examined at bedside. No acute events overnight. Patient states that abdominal pain now radiates to right flank, right mid back. Denies any N/V/D. No F/C. Complains of urinary frequency, no dysuria. Still c/o headaches. No CP/ SOB Objective - Vital Signs/Intake and Output Vital Signs (last 24 hours): Temp Pulse Resp BP Pulse Ox 97.7 F 53 L 20 147/70 95 04/07/17 07:41 04/07/17 07:41 04/07/17 07:41 04/07/17 09:51 04/07/17 07:41 - Medications Medications: Current Medications Atorvastatin Calcium (Lipitor) 10 mg PO DAILY [facility] Last Admin: 04/07/17 09:55 Dose: 10 mg Famotidine (Pepcid) 20 mg IVP DAILY [facility] Last Admin: 04/07/17 09:55 Dose: 20 mg Piperacillin Sod/Tazobactam (Sod 3.375 gm/ Sodium Chloride) 100 mls @ 100 mls/ hr IVPB 0000,0600,1200,1800 [facility] Last Admin: 04/07/17 05:31 Dose: 100 mls/hr Dextrose/Sodium Chloride (Dextrose 5%/0.9% Ns 1000 Ml) 1,000 mls @ 125 mls/hr IV .Q8H [facility] Stop: 04/07/17 10:51 Last Admin: 04/07/17 03:00 Dose: Not Given Losartan Potassium (Cozaar) 25 mg PO DAILY [facility] Last Admin: 04/07/17 09:51 Dose: 25 mg Morphine Sulfate (Morphine) 4 mg IVP Q4 PRN PRN Reason: Pain, severe (8-10) Morphine Sulfate (Morphine) 2 mg IVP Q4 PRN PRN Reason: Pain, moderate (4-7) Ondansetron HCl (Zofran Inj) 4 mg IVP Q4 PRN PRN Reason: Nausea/Vomiting - Labs Labs: 04/07/17 06:00 04/07/17 06:00 PT 11.6 Seconds (9.8-13.1) 04/05/17 05:35 INR 1.0 (0.9-1.2) 04/05/17 05:35 APTT 27.4 Seconds (25.6-37.1) 04/05/17 05:35 - Constitutional Appears: Well, No Acute Distress - Head Exam Head Exam: ATRAUMATIC, NORMAL INSPECTION, NORMOCEPHALIC - Eye Exam Eye Exam: EOMI - ENT Exam ENT Exam: Mucous Membranes Moist - Neck Exam Neck Exam: Full ROM - Respiratory Exam Respiratory Exam: NORMAL BREATHING PATTERN - GI/Abdominal Exam GI & Abdominal Exam: Soft Additional comments: mild tender to palpation epigastric area. No distention, no guarding, no rebound - Extremities Exam Extremities Exam: Normal Inspection. absent: Calf Tenderness - Neurological Exam Neurological Exam: Alert, Awake, Oriented x3 - Psychiatric Exam Psychiatric exam: Normal Affect, Normal Mood - Skin Skin Exam: Dry, Intact, Normal Color, Warm Assessment and Plan - Assessment and Plan (Free Text) Assessment: 61yo F with PMHx of HTN and hx of gallstones here with abdominal pain - Abd US - mildly thickened GB wall, CBD 8.4mm. - Afebrile, no leukocytosis - HIDA - occluded cystic duct - MRCP (prelim) - 1.7cm gallstone in gallbladder. Mild pericholecystic fluid. No evidence of ductal stone - Urinalysis negative - f/u official MRCP report - CLD - Pain management - continue IVF, Abx - will continue to follow patient clinically Further recs as per Dr. Dipak Crockett PGY1 <Drake Quesada - Last Filed: 04/07/17 16:00> Subjective - Date & Time of Evaluation Time of Evaluation: 15:30 - Subjective Subjective: Patient was seen and examined at the bedside. Agree with resident's note above. Objective - Vital Signs/Intake and Output Vital Signs (last 24 hours): Temp Pulse Resp BP Pulse Ox 97.7 F 53 L 20 147/70 95 04/07/17 07:41 04/07/17 07:41 04/07/17 07:41 04/07/17 09:51 04/07/17 07:41 - Medications Medications: Current Medications Atorvastatin Calcium (Lipitor) 10 mg PO DAILY [facility] Last Admin: 04/07/17 09:55 Dose: 10 mg Famotidine (Pepcid) 20 mg IVP DAILY [facility] Last Admin: 04/07/17 09:55 Dose: 20 mg Piperacillin Sod/Tazobactam (Sod 3.375 gm/ Sodium Chloride) 100 mls @ 100 mls/ hr IVPB 0000,0600,1200,1800 [facility] Last Admin: 04/07/17 11:48 Dose: 100 mls/hr Dextrose/Sodium Chloride (Dextrose 5%/0.9% Ns 1000 Ml) 1,000 mls @ 125 mls/hr IV .Q8H [facility] Stop: 04/08/17 15:32 Losartan Potassium (Cozaar) 25 mg PO DAILY [facility] Last Admin: 04/07/17 09:51 Dose: 25 mg Morphine Sulfate (Morphine) 4 mg IVP Q4 PRN PRN Reason: Pain, severe (8-10) Morphine Sulfate (Morphine) 2 mg IVP Q4 PRN PRN Reason: Pain, moderate (4-7) Ondansetron HCl (Zofran Inj) 4 mg IVP Q4 PRN PRN Reason: Nausea/Vomiting - Labs Labs: 04/07/17 06:00 04/07/17 06:00 PT 11.6 Seconds (9.8-13.1) 04/05/17 05:35 INR 1.0 (0.9-1.2) 04/05/17 05:35 APTT 27.4 Seconds (25.6-37.1) 04/05/17 05:35 Assessment and Plan - Assessment and Plan (Free Text) Plan: - Continue clear liquid diet - pain control - Continue antibiotics - NPO after midnight - To OR tomorrow for cholecystectomy
[2017-04-08] MEDS: Piperacillin/Tazobact 3.375 GM in Sodium Chloride 0.9% 100 ML IVPB SCH ×3 (05:07→17:23)
[2017-04-08 07:04] LABS: HEMOGLOBIN 12.7 g/dL (12.0-16.0); MEAN CELL VOLUME 90.6 fl (81.0-99.0); MEAN CORPUSCULAR HEMOGLOBIN 29.9 pg (27.0-31.0); RBC 4.26 Mil/uL (3.80-5.20); RED CELL DISTRIBUTION WIDTH 13.6 % (11.5-14.5); WHITE BLOOD COUNT 7.5 K/uL (4.8-10.8)
[2017-04-08 08:06] LABS: ALB/GLOB RATIO 1.3 (1.0-2.1); ALBUMIN 3.5 g/dL (3.5-5.0); ALT/SGPT 47 U/L (9-52); AST/SGOT 26 U/L (14-36); BLOOD UREA NITROGEN 6 mg/dl (7-17); CALCIUM 9.4 mg/dL (8.4-10.2); GFR AFRICAN-AMERICAN > 60; GFR NON-AFRICAN AMERICAN > 60
[2017-04-08] MEDS: Dextrose 5%/0.9% NS 1,000 ML IV SCH (08:36)
[2017-04-08] MEDS ORDERED: Bupivacaine 0.5% Inj(30mL) ONE (09:23)
[2017-04-08] MEDS ORDERED: Propofol 10 mg/ml Inj (20 ML) ONE (09:25)
[2017-04-08] MEDS ORDERED: Midazolam 2 MG/2 ML VIAL ONE (09:26)
[2017-04-08] MEDS ORDERED: Rocuronium 10 mg/ml (5 ml) ONE (09:26)
[2017-04-08] MEDS ORDERED: Dexamethasone 4 mg/1 ml ONE (09:52)
[2017-04-08] MEDS ORDERED: Lactated Ringer's 1,000 ML IV ONE (09:55)
[2017-04-08] MEDS ORDERED: Neostigmine Methylsulfate 3mg/3ml Syringe IV ONE (10:25)
[2017-04-08] MEDS ORDERED: Lactated Ringer's 1,000 ML IV SCH (10:39)
--- NOTE | 2017-04-08 10:53 | PCM.SURG1 ---
Surgeon's Initial Post Op Note - Surgeon's Notes Surgeon: Dipak Dental Ceramist: Ange Pacheco PGY3, Enrique PGY2 Type of Anesthesia: General Endo, Local Pre-Operative Diagnosis: cholecystitis Operative Findings: chronically inflamed, +gallstones Post-Operative Diagnosis: same Operation Performed: laparoscopic cholecystectomy Specimen/Specimens Removed: gallbladder Estimated Blood Loss: EBL {In ML}: 10 Blood Products Given: N/A Drains Used: No Drains Post-Op Condition: Good Date of Surgery/Procedure: 04/08/17 Time of Surgery/Procedure: 10:53
[2017-04-08] MEDS ORDERED: HYDROmorphone 0.5 mg/0.5 ml ISec IVP PRN (10:55)
--- NOTE | 2017-04-08 16:44 | MRI ---
PROCEDURE: Magnetic Resonance Cholangiopancreatography HISTORY: 61 years old woman with abdominal pain dilated CBD and positive hepatobiliary scan for possible acute cholecystitis COMPARISON: Comparison is made to the previous hepatobiliary scan dated 04/05/2017 and ultrasound of the abdomen dated 04/04/2017 CT of the abdomen dated 01/01/2017. TECHNIQUE: Multiplanar, multisequence MR images of the abdomen were obtained, including heavily T2 weighted MRCP images of the biliary system. Rotating maximum intensity projection images of the biliary system were generated. FINDINGS: MRCP: There is mild intrahepatic biliary ductal dilatation. There is [id number] dilated CBD without evidence of choledocholithiasis or filling defect. The distal portion of the CBD has a normal caliber and shape. LIVER: Unremarkable. GALLBLADDER: There is hypointense signal well defined focus at the gallbladder neck likely representing an obstructing cholelithiasis measures 17 millimeter in the transverse diameter. The gallbladder is slightly distended surrounding with pericholecystic fluid. Findings suspicious for acute cholecystitis. SPLEEN: Unremarkable. PANCREAS: Unremarkable. ADRENALS: Unremarkable. KIDNEYS: Unremarkable. AORTA: No aneurysm. ASCITES: None. OTHER FINDINGS: None. IMPRESSION: Findings suspicious for cholelithiasis and acute cholecystitis. Mild dilatation of the intrahepatic and extrahepatic biliary ducts without evidence of choledocholithiasis. Preliminary report was submitted by [facility].
--- NOTE | 2017-04-08 18:21 | CP.PCM.PN ---
Subjective - Date & Time of Evaluation Date of Evaluation: 04/08/17 Time of Evaluation: 18:00 - Subjective Subjective: Pt seen after she had surgery and was back to the floor no fever pain controlled no CP no SOB tolerating liquid diet pt has voided post op Objective - Vital Signs/Intake and Output Vital Signs (last 24 hours): Temp Pulse Resp BP Pulse Ox 98.1 F 54 L 18 155/77 H 99 04/08/17 16:33 04/08/17 16:33 04/08/17 16:33 04/08/17 16:33 04/08/17 16:33 Intake and Output: 04/08/17 04/08/17 06:59 18:59 Intake Total 600 Balance 600 - Medications Medications: Current Medications Acetaminophen (Tylenol 325mg Tab) 650 mg PO Q6 PRN PRN Reason: Fever >100.4 F Atorvastatin Calcium (Lipitor) 10 mg PO DAILY [facility] Last Admin: 04/08/17 08:37 Dose: Not Given Docusate Sodium (Colace) 100 mg PO BID [facility] Last Admin: 04/08/17 17:22 Dose: 100 mg Famotidine (Pepcid) 20 mg IVP DAILY [facility] Last Admin: 04/08/17 08:37 Dose: 20 mg Hydromorphone HCl (Dilaudid) 0.5 mg IVP Q4 PRN PRN Reason: Pain, severe (8-10) Piperacillin Sod/Tazobactam (Sod 3.375 gm/ Sodium Chloride) 100 mls @ 100 mls/ hr IVPB 0000,0600,1200,1800 [facility] Last Admin: 04/08/17 17:23 Dose: 100 mls/hr Lactated Ringer's (Lactated Ringer's) 1,000 mls @ 50 mls/hr IV .Q20H [facility] Last Admin: 04/08/17 17:40 Dose: Not Given Ketorolac Tromethamine (Toradol) 15 mg IVP Q6 PRN PRN Reason: Pain, Mild (1-3) Losartan Potassium (Cozaar) 25 mg PO DAILY [facility] Last Admin: 04/08/17 08:37 Dose: 25 mg Metoclopramide HCl (Reglan) 10 mg IVP ONCE PRN PRN Reason: Nausea/Vomiting Ondansetron HCl (Zofran Inj) 4 mg IVP Q4 PRN PRN Reason: Nausea/Vomiting Oxycodone/Acetaminophen (Percocet 5/325 Mg Tab) 1 tab PO Q4 PRN PRN Reason: Pain, moderate (4-7) Stop: 04/11/17 10:55 - Labs Labs: 04/08/17 06:05 04/08/17 06:05 PT 11.6 Seconds (9.8-13.1) 04/05/17 05:35 INR 1.0 (0.9-1.2) 04/05/17 05:35 APTT 27.4 Seconds (25.6-37.1) 04/05/17 05:35 - Constitutional Appears: No Acute Distress - Head Exam Head Exam: ATRAUMATIC, NORMAL INSPECTION, NORMOCEPHALIC - Eye Exam Eye Exam: EOMI, Normal appearance, PERRL Pupil Exam: NORMAL ACCOMODATION - ENT Exam ENT Exam: Mucous Membranes Moist, Normal External Ear Exam - Neck Exam Neck Exam: Full ROM. absent: Meningismus - Respiratory Exam Respiratory Exam: NORMAL BREATHING PATTERN. absent: Rales, Rhonchi, Respiratory Distress - Cardiovascular Exam Cardiovascular Exam: REGULAR RHYTHM, +S1, +S2 - GI/Abdominal Exam GI & Abdominal Exam: Distended, Soft, Tenderness, Normal Bowel Sounds Additional comments: small surgical incision for Lap Anila - Extremities Exam Extremities Exam: Full ROM, Normal Capillary Refill. absent: Calf Tenderness, Pedal Edema - Back Exam Back Exam: Full ROM. absent: CVA tenderness (L), CVA tenderness (R), paraspinal tenderness, vertebral tenderness - Neurological Exam Neurological Exam: Alert, Awake, CN II-XII Intact, Oriented x3 Neuro motor strength exam: Left Upper Extremity: 5, Right Upper Extremity: 5, Left Lower Extremity: 5, Right Lower Extremity: 5 - Psychiatric Exam Psychiatric exam: Normal Affect, Normal Mood - Skin Skin Exam: Dry, Normal Color, Warm Assessment and Plan - Assessment and Plan (Free Text) Assessment: 61 years old female with hx of nephrolithiasis, HTN, Cholelithiasis , came in with one day of Continuous, Sharp, Severe epigastric pain, radiating to the RUQ and to the right back, associated with nausea and vomits. This is the third incident this year, all of which are sharp RUQ pain that resolves by itself. Per US Acalculous cholecystitis may be present, mildly thickened gallbladder wall with CBD 8.4mm. Per HIDA cystic duct is occluded, presumptive evidence for acute cholecystitis. MRCP showed cholelithiasis , cholecystitis and no CBD stone. 04/08 - pt underwent Lap Cholecystectomy 1. Acute cholecystitis and cholelithiasis s/p Lap Anila Continue Zosyn Iv and pain management MRCP showed no CBD stone Had lap Anila today Tolerating liquid diet Voiding freely 2.HTN controlled resume Losartan 3. Hypokalemia replaced with Kcl 4. Dyslipidemia on statin 5. DVT Prophylaxis SCD Lovenox in am
[2017-04-09] MEDS: Piperacillin/Tazobact 3.375 GM in Sodium Chloride 0.9% 100 ML IVPB SCH ×3 (00:01→12:49)
[2017-04-09] MEDS: Oxycodone/Acetaminophen 5/325 mg Tab PO PRN ×2 (05:14→12:06)
[2017-04-09 07:38] LABS: HEMOGLOBIN 12.1 g/dL (12.0-16.0); MEAN CELL VOLUME 90.8 fl (81.0-99.0); MEAN CORPUSCULAR HEMOGLOBIN 29.8 pg (27.0-31.0); MEAN CORPUSCULAR HGB CONC 32.9 g/dL (33.0-37.0); RBC 4.05 Mil/uL (3.80-5.20); RED CELL DISTRIBUTION WIDTH 13.7 % (11.5-14.5); WHITE BLOOD COUNT 11.2 K/uL (4.8-10.8)
[2017-04-09 07:42] LABS: ALB/GLOB RATIO 1.4 (1.0-2.1); ALBUMIN 3.5 g/dL (3.5-5.0); ALT/SGPT 101 U/L (9-52); AST/SGOT 85 U/L (14-36); BLOOD UREA NITROGEN 6 mg/dl (7-17); CALCIUM 9.1 mg/dL (8.4-10.2); GFR AFRICAN-AMERICAN > 60; GFR NON-AFRICAN AMERICAN > 60
[2017-04-09 08:08] VITALS: BP 116/62; RESP 20; TEMP 98.3
--- NOTE | 2017-04-09 08:15 | CP.PCM.PN ---
<Yonathan Nunez - Last Filed: 04/09/17 08:12> Subjective - Date & Time of Evaluation Date of Evaluation: 04/09/17 Time of Evaluation: 08:12 - Subjective Subjective: Surgery for Dr. Dipak Amaral s&lona JEFFRIES. Denies F/C/N/V/D/CP/SOB. Tolerating CLD, ambulating. +void. Pain controlled. Objective - Vital Signs/Intake and Output Vital Signs (last 24 hours): Temp Pulse Resp BP Pulse Ox 98.3 F 57 L 20 116/62 91 L 04/09/17 08:07 04/09/17 08:07 04/09/17 08:07 04/09/17 08:07 04/09/17 08:07 - Medications Medications: Current Medications Acetaminophen (Tylenol 325mg Tab) 650 mg PO Q6 PRN PRN Reason: Fever >100.4 F Atorvastatin Calcium (Lipitor) 10 mg PO DAILY [facility] Last Admin: 04/08/17 08:37 Dose: Not Given Docusate Sodium (Colace) 100 mg PO BID [facility] Last Admin: 04/08/17 17:22 Dose: 100 mg Enoxaparin Sodium (Lovenox) 40 mg SC DAILY [facility] PRN Reason: Protocol Famotidine (Pepcid) 20 mg IVP DAILY [facility] Last Admin: 04/08/17 08:37 Dose: 20 mg Hydromorphone HCl (Dilaudid) 0.5 mg IVP Q4 PRN PRN Reason: Pain, severe (8-10) Last Admin: 04/08/17 20:03 Dose: 0.5 mg Piperacillin Sod/Tazobactam (Sod 3.375 gm/ Sodium Chloride) 100 mls @ 100 mls/ hr IVPB 0000,0600,1200,1800 [facility] Last Admin: 04/09/17 05:07 Dose: 100 mls/hr Lactated Ringer's (Lactated Ringer's) 1,000 mls @ 50 mls/hr IV .Q20H [facility] Last Admin: 04/08/17 17:40 Dose: Not Given Ketorolac Tromethamine (Toradol) 15 mg IVP Q6 PRN PRN Reason: Pain, Mild (1-3) Losartan Potassium (Cozaar) 25 mg PO DAILY [facility] Last Admin: 04/08/17 08:37 Dose: 25 mg Metoclopramide HCl (Reglan) 10 mg IVP ONCE PRN PRN Reason: Nausea/Vomiting Ondansetron HCl (Zofran Inj) 4 mg IVP Q4 PRN PRN Reason: Nausea/Vomiting Oxycodone/Acetaminophen (Percocet 5/325 Mg Tab) 1 tab PO Q4 PRN PRN Reason: Pain, moderate (4-7) Stop: 04/11/17 10:55 Last Admin: 04/09/17 05:14 Dose: 1 tab - Labs Labs: 04/09/17 06:50 04/09/17 06:50 PT 11.6 Seconds (9.8-13.1) 04/05/17 05:35 INR 1.0 (0.9-1.2) 04/05/17 05:35 APTT 27.4 Seconds (25.6-37.1) 04/05/17 05:35 - Constitutional Appears: No Acute Distress - Head Exam Head Exam: ATRAUMATIC, NORMAL INSPECTION, NORMOCEPHALIC - Eye Exam Eye Exam: EOMI, Normal appearance, PERRL Pupil Exam: NORMAL ACCOMODATION, PERRL - ENT Exam ENT Exam: Mucous Membranes Moist, Normal Exam - Neck Exam Neck Exam: Full ROM, Normal Inspection. absent: Lymphadenopathy - Respiratory Exam Respiratory Exam: Clear to Ausculation Bilateral, NORMAL BREATHING PATTERN - Cardiovascular Exam Cardiovascular Exam: REGULAR RHYTHM, +S1, +S2. absent: Murmur - GI/Abdominal Exam GI & Abdominal Exam: Soft, Tenderness, Normal Bowel Sounds. absent: Distended, Firm, Guarding, Rigid, Hernia, Mass Additional comments: Incision C/D/I. No bleeding. No signs of infection - Exam Exam: NORMAL INSPECTION - Extremities Exam Extremities Exam: Full ROM, Normal Capillary Refill, Normal Inspection. absent : Joint Swelling, Pedal Edema - Back Exam Back Exam: NORMAL INSPECTION - Neurological Exam Neurological Exam: Alert, Awake, CN II-XII Intact, Normal Gait, Oriented x3 - Psychiatric Exam Psychiatric exam: Normal Affect, Normal Mood - Skin Skin Exam: Dry, Intact, Normal Color, Warm Assessment and Plan - Assessment and Plan (Free Text) Assessment: S/P Lap jeffry POD 1 -Pain control -Advance diet as tolerated -OK to DC for surgical standpoint -F/U with Dr. Quesada in 1-2 weeks -Keep dermabond on. -Ok to take shower -Avoid heavy lifting for [address] Quesada <Drake Quesada - Last Filed: 04/09/17 10:43> Subjective - Date & Time of Evaluation Time of Evaluation: 10:00 - Subjective Subjective: Patient was seen and examined at the bedside. Agree with resident's note above. Objective - Vital Signs/Intake and Output Vital Signs (last 24 hours): Temp Pulse Resp BP Pulse Ox 98.3 F 60 20 116/62 91 L 04/09/17 08:07 04/09/17 08:36 04/09/17 08:07 04/09/17 08:36 04/09/17 08:07 - Medications Medications: Current Medications Acetaminophen (Tylenol 325mg Tab) 650 mg PO Q6 PRN PRN Reason: Fever >100.4 F Atorvastatin Calcium (Lipitor) 10 mg PO DAILY [facility] Last Admin: 04/09/17 08:35 Dose: 10 mg Docusate Sodium (Colace) 100 mg PO BID [facility] Last Admin: 04/09/17 08:35 Dose: 100 mg Enoxaparin Sodium (Lovenox) 40 mg SC DAILY [facility] PRN Reason: Protocol Last Admin: 04/09/17 08:36 Dose: 40 mg Famotidine (Pepcid) 20 mg IVP DAILY [facility] Last Admin: 04/09/17 08:37 Dose: 20 mg Hydromorphone HCl (Dilaudid) 0.5 mg IVP Q4 PRN PRN Reason: Pain, severe (8-10) Last Admin: 04/08/17 20:03 Dose: 0.5 mg Piperacillin Sod/Tazobactam (Sod 3.375 gm/ Sodium Chloride) 100 mls @ 100 mls/ hr IVPB 0000,0600,1200,1800 [facility] Last Admin: 04/09/17 05:07 Dose: 100 mls/hr Lactated Ringer's (Lactated Ringer's) 1,000 mls @ 50 mls/hr IV .Q20H [facility] Last Admin: 04/08/17 17:40 Dose: Not Given Ketorolac Tromethamine (Toradol) 15 mg IVP Q6 PRN PRN Reason: Pain, Mild (1-3) Losartan Potassium (Cozaar) 25 mg PO DAILY [facility] Last Admin: 04/09/17 08:36 Dose: 25 mg Metoclopramide HCl (Reglan) 10 mg IVP ONCE PRN PRN Reason: Nausea/Vomiting Ondansetron HCl (Zofran Inj) 4 mg IVP Q4 PRN PRN Reason: Nausea/Vomiting Oxycodone/Acetaminophen (Percocet 5/325 Mg Tab) 1 tab PO Q4 PRN PRN Reason: Pain, moderate (4-7) Stop: 04/11/17 10:55 Last Admin: 04/09/17 05:14 Dose: 1 tab - Labs Labs: 04/09/17 06:50 04/09/17 06:50 PT 11.6 Seconds (9.8-13.1) 04/05/17 05:35 INR 1.0 (0.9-1.2) 04/05/17 05:35 APTT 27.4 Seconds (25.6-37.1) 04/05/17 05:35 Assessment and Plan - Assessment and Plan (Free Text) Plan: - Clear for discharge from the surgical stand point - Augmentin 875/125 mg po Q12h for 1 week on discharge - Patient will follow up with me in the office for post-op visit
[2017-04-09 08:37] VITALS: PULSE 60
[2017-04-09] MEDS ORDERED: Enoxaparin 40 mg Syringe SC SCH (09:00)
--- NOTE | 2017-04-09 10:29 | CP.PCM.DIS ---
Provider - Provider Date of Admission: 04/04/17 23:03 Attending physician: Edu Echavarria Consults: Surgery: Dr Quesada Time Spent in preparation of Discharge (in minutes): 20 Diagnosis - Discharge Diagnosis (1) Acute cholecystitis due to biliary calculus Status: Acute (2) HTN (hypertension) Status: Chronic (3) Hypokalemia Status: Acute (4) Abnormal LFTs (liver function tests) Status: Acute Hospital Course - Lab Results Lab Results: Micro Results 04/04/17 23:41 Blood Blood Culture - Preliminary NO GROWTH AFTER 4 DAYS 04/05/17 00:00 Blood Blood Culture - Preliminary NO GROWTH AFTER 4 DAYS Most Recent Lab Values WBC 11.2 K/uL (4.8-10.8) H 04/09/17 06:50 RBC 4.05 Mil/uL (3.80-5.20) 04/09/17 06:50 Hgb 12.1 g/dL (12.0-16.0) 04/09/17 06:50 Hct 36.8 % (34.0-47.0) 04/09/17 06:50 MCV 90.8 fl (81.0-99.0) 04/09/17 06:50 MCH 29.8 pg (27.0-31.0) 04/09/17 06:50 MCHC 32.9 g/dL (33.0-37.0) L 04/09/17 06:50 RDW 13.7 % (11.5-14.5) 04/09/17 06:50 Plt Count 184 K/uL (130-400) 04/09/17 06:50 MPV 10.0 fl (7.2-11.7) 04/07/17 06:00 Neut % (Auto) 50.2 % (50.0-75.0) 04/07/17 06:00 Lymph % (Auto) 37.8 % (20.0-40.0) 04/07/17 06:00 [place] % (Auto) 9.7 % (0.0-10.0) 04/07/17 06:00 Eos % (Auto) 1.7 % (0.0-4.0) 04/07/17 06:00 Baso % (Auto) 0.6 % (0.0-2.0) 04/07/17 06:00 Neut # 3.5 K/uL (1.8-7.0) 04/07/17 06:00 Lymph # 2.6 K/uL (1.0-4.3) 04/07/17 06:00 [place] # 0.7 K/uL (0.0-0.8) 04/07/17 06:00 Eos # 0.1 K/uL (0.0-0.7) 04/07/17 06:00 Baso # 0.0 K/uL (0.0-0.2) 04/07/17 06:00 PT 11.6 Seconds (9.8-13.1) 04/05/17 05:35 INR 1.0 (0.9-1.2) 04/05/17 05:35 APTT 27.4 Seconds (25.6-37.1) 04/05/17 05:35 Sodium 141 mmol/l (132-148) 04/09/17 06:50 Potassium 3.6 MMOL/L (3.6-5.0) 04/09/17 06:50 Chloride 104 mmol/L (98-107) 04/09/17 06:50 Carbon Dioxide 28 mmol/L (22-30) 04/09/17 06:50 Anion Gap 13 (10-20) 04/09/17 06:50 BUN 6 mg/dl (7-17) L 04/09/17 06:50 Creatinine 0.8 mg/dL (0.7-1.2) 04/09/17 06:50 Est GFR ( Amer) > 60 04/09/17 06:50 Est GFR (Non-Af Amer) > 60 04/09/17 06:50 Random Glucose 118 mg/dL (65-105) H 04/09/17 06:50 Calcium 9.1 mg/dL (8.4-10.2) 04/09/17 06:50 Total Bilirubin 0.4 mg/dl (0.2-1.3) 04/09/17 06:50 AST 85 U/L (14-36) H D 04/09/17 06:50 ALT 101 U/L (9-52) H D 04/09/17 06:50 Alkaline Phosphatase 61 U/L (38-126) 04/09/17 06:50 Total Protein 6.0 G/DL (6.3-8.2) L 04/09/17 06:50 Albumin 3.5 g/dL (3.5-5.0) 04/09/17 06:50 Globulin 2.5 gm/dL (2.2-3.9) 04/09/17 06:50 Albumin/Globulin Ratio 1.4 (1.0-2.1) 04/09/17 06:50 Lipase 49 U/L (23-300) 04/04/17 21:12 Urine Color Straw (YELLOW) 04/07/17 07:30 Urine Clarity Clear (Clear) 04/07/17 07:30 Urine pH 6.0 (5.0-8.0) 04/07/17 07:30 Ur Specific [place] 1.013 (1.003-1.030) 04/07/17 07:30 Urine Protein Negative mg/dL (NEGATIVE) 04/07/17 07:30 Urine Glucose (UA) Neg mg/dL (Normal) 04/07/17 07:30 Urine Ketones Negative mg/dL (NEGATIVE) 04/07/17 07:30 Urine Blood Negative (NEGATIVE) 04/07/17 07:30 Urine Nitrate Negative (NEGATIVE) 04/07/17 07:30 Urine Bilirubin Negative (NEGATIVE) 04/07/17 07:30 Urine Urobilinogen 0.2-1.0 mg/dL (0.2-1.0) 04/07/17 07:30 Ur Leukocyte Esterase Neg [place]/uL (Negative) 04/07/17 07:30 Urine RBC (Auto) 2 /hpf (0-3) 04/07/17 07:30 Urine Microscopic WBC < 1 /hpf (0-5) 04/07/17 07:30 - Hospital Course Hospital Course: 61 years old female with hx of nephrolithiasis, HTN, Cholelithiasis , came in with one day of Continuous, Sharp, Severe epigastric pain, radiating to the RUQ and to the right back, associated with nausea and vomits. This is the third incident this year, all of which are sharp RUQ pain that resolves by itself. Per US Acalculous cholecystitis may be present, mildly thickened gallbladder wall with CBD 8.4mm. Per HIDA cystic duct is occluded, presumptive evidence for acute cholecystitis. MRCP showed cholelithiasis , cholecystitis and no CBD stone. 04/08 - pt underwent Lap Cholecystectomy. No post op complications. Tolerating PO diet, + BM 1. Acute cholecystitis and cholelithiasis s/p Lap Anila received Zosyn Iv - will d/c pt on PO Augmentin pain management MRCP showed no CBD stone Had Lap Cholecystectomy on 04/08 Tolerating PO diet Voiding freely + BM 2.HTN controlled resume Losartan 3. Hypokalemia replaced with Kcl 4. Dyslipidemia on statin 5. DVT Prophylaxis SCD Lovenox Discharge Exam - Head Exam Head Exam: ATRAUMATIC, NORMAL INSPECTION, NORMOCEPHALIC - Eye Exam Eye Exam: EOMI, Normal appearance, PERRL Pupil Exam: NORMAL ACCOMODATION - ENT Exam ENT Exam: Mucous Membranes Moist, Normal External Ear Exam - Neck Exam Neck exam: Full Rom - Respiratory Exam Respiratory Exam: NORMAL BREATHING PATTERN. absent: Respiratory Distress - Cardiovascular Exam Cardiovascular Exam: REGULAR RHYTHM, +S1, +S2 - GI/Abdominal Exam GI & Abdominal Exam: Normal Bowel Sounds, Soft, Tenderness - Extremities Exam Extremities exam: full ROM, normal capillary refill, pedal pulses present - Back Exam Back exam: FULL ROM. absent: CVA tenderness (L), CVA tenderness (R), vertebral tenderness - Neurological Exam Neurological exam: Alert, CN II-XII Intact, Normal Gait, Oriented x3, Reflexes Normal - Psychiatric Exam Psychiatric exam: Normal Affect, Normal Mood - Skin Skin Exam: Dry, Normal Color, Warm Discharge Plan - Discharge Medications Prescriptions: Amoxicillin/Clavulanate [Augmentin 875 MG-125 MG] 1 tab PO BID #1 tab - Follow Up Plan Condition: GOOD Disposition: HOME/ ROUTINE Instructions: Laparoscopic Cholecystectomy (DC) Additional Instructions: ff up with Dr Quesada in 1 wk ff up with PMD gustavo no heavy lifting Referrals: Drake Quesada MD [Staff Provider] -
[2017-04-10 11:30] VITALS: O2SAT 100
--- NOTE | 2017-04-19 09:49 | OP ---
Dr. Drake Quesada Date of Procedure: 04/08/17 Preoperative diagnosis: Acute cholecystitis Postoperative diagnosis: Acute cholecystitis Procedure: Laparoscopic cholecystectomy Surgeon: Dipak Speech Pathologist Assistant: Juinor Second engineer first assistant: Hannah Third engineer first assistant: Enrique Anesthesia: General and the tracheal intubation Estimated blood loss is 10 ml Intraoperative findings: acute cholecystitis/ cholelithiasis Specimen: Gallbladder stone Brief history: Ms Yu is a very pleasant 61 y/o female who presented to the hospital complaining of epigastric RUQ abdominal pain radiating to the back, and upon further investigation and scan, patient was found to have acute cholecystitis. All the risks and benefits of the procedure were explained to the patient, ____ the patient had full understanding of all the risks and benefits involved. Informed consent was obtained and patient taken to the operative room for about to start the procedure. Procedure: patient was brought into the operative room, and placed supine on the operating table, bilateral were applied to pt to lower extremities. After successful induction of anesthesia and successful tracheal intubation by the anesthesia team. Pt abdomen was prepped with to and wrapped the surgical fashion procedure time out was called in the room, and everyone in the room were in agreement. Using ____ needle patient's abdomen was entered. Once this was accomplished 5 mm 0 degree scalpel, knife approximately one once this was accomplished scalpel knife approximately 1cm incision was made in umbilical ____ _ 11 mm trochar was introduced in patient's abdomen. At that point in time 5mm 0 degree scalpel was introduced in patient's abdomen and abdomen was inspected. We immediately visualize wrapping the area where the gallbladder should be. At that point in time attention was sent to the subsidy for the area using 11 blade scalpel knife 5mm incision was made in transfera fascia. And subsequent to that 5 mm trocar was introduced into the patient abdomen. At the point in time attention was using 11 blade scalpel knife Two 5mm incisions were made on the transferase fascia on the right side of the patient's abdomen, and subsequent to that, another two 5mm trochars were introduced in patient;s abdomen. At that point in time gall bladder was and Cystic duct and cystic artery were dissected out and critical view was achieved. At that point in time cystic duct was clipped with two clips one proximal and one distal, laparoscopic scissor same thing was done for the cystic artery. Upon further dissection was counter small posterior branch of the cystic artery that was clipped, one clip distal and one, of the cystic artery At that point in time, gall bladder was dissected of the gallbladder fossa and once the gall bladder was completely freed out from the gallbladder fossa and the was introduced into the patient abdomen Gallbladder was placed in a bag and the bag was closed. At that point in time gallbladder fossa was inspected for hemostasis At this point in time 11 trochet and the gallbladder that were removed from the patient's abdomen. And passed out as a specimen fascia umbilical was closed with 6 needle . Subsequent to that patient's abdomen was fully disinflated the rest of the trocars were removed from patient's abdomen and skin was closed at the end of the procedure incisions were imbricated where Patient's abdomen was washed and dried. And a dermo was applied to the incisions. Pt was successfully by the anesthesia team. Pt was taken to the recovery room in stable condition. Drake Quesada MD
== END 2017-04-09 14:20 | disposition home or self-care (01) | DRG 493 ==
LOC: H.ER 20:41 → H.ERHOLD 23:03 → H.MEDSURG1 04-05 01:17
PROVIDERS: ADMIT Internal Medicine; ATTEND Internal Medicine
PROC: 0FT44ZZ Resection of Gallbladder, Percutaneous Endoscopic Approach (ICD-10-PCS; principal; 2017-04-08 09:30)
DX: K80.00 Calculus of gallbladder with acute cholecystitis without obstruction (principal); E87.6 Hypokalemia; I10 Essential (primary) hypertension; M47.814 Spondylosis without myelopathy or radiculopathy, thoracic region; M47.816 Spondylosis without myelopathy or radiculopathy, lumbar region; K59.00 Constipation, unspecified; R51 Headache; E78.5 Hyperlipidemia, unspecified; R79.89 Other specified abnormal findings of blood chemistry; Z87.442 Personal history of urinary calculi; Z87.891 Personal history of nicotine dependence